=== PATIENT | male | born 1945 | race Caucasian/White ===

== ENCOUNTER 2023-03-10 13:17 | Emergency (ER) | payer MEDICARE ==
[~2023-03-10] VITALS: Ht 172.7 cm; Wt 147.4 kg
[2023-03-10 13:20] VITALS: BP_SYST 170; PULSE 102; RESP 22; TEMP 97.9; O2SAT 88
[2023-03-10 14:10] LABS: BASOPHILS # (AUTO) 0.1 K/uL (0.0-0.2); EOSINOPHILS # (AUTO) 0.3 K/uL (0.0-0.4); EOSINOPHILS % (AUTO) 2.7 % (0.0-4.0); HEMATOCRIT 46.6 % (36-54); HEMOGLOBIN 15.1 g/dL (14.0-18.0); LYMPHOCYTES # (AUTO) 2.3 K/uL (1.0-5.5); LYMPHOCYTES % (AUTO) 22.6 % (20.5-51.5); MEAN CORPUSCULAR HEMOGLOBIN 29 pg (27-31); MEAN CORPUSCULAR HGB CONC 32 % (32-36); MEAN CORPUSCULAR VOLUME 88 fL (79.0-98.0); MONOCYTES # (AUTO) 0.4 K/uL (0.0-1.0); MONOCYTES % (AUTO) 4.3 % (1.7-9.3); NEUTROPHILS % (AUTO) 69.4 % (40.0-70.0); PLATELET COUNT (AUTO) 265 K/uL (130-430); RED BLOOD CELL COUNT(AUTO) 5.27 MIL/uL (4.2-6.2); RED CELL DISTRIBUTION WIDTH 15.7 % (9.0-15.0); WHITE BLOOD COUNT (AUTO) 10.1 K/uL (4.8-10.8)
[2023-03-10 14:34] LABS: ALANINE AMINOTRANSFERASE 31 U/L (12-78); ALBUMIN 3.3 g/dL (3.4-4.8); ANION GAP 10 (5-15); ASPARTATE AMINOTRANSFERASE 24 U/L (10-37); CALCIUM 9.3 mg/dL (8.4-11.0); CARBON DIOXIDE 28 mmol/L (23-29); CHLORIDE 95 mmol/L (98-107); CREATININE 1.33 mg/dL (0.55-1.30); PHOSPHORUS 3.9 mg/dL (2.7-4.5); POTASSIUM 4.3 mmol/L (3.5-5.1); SODIUM SERUM 133 mmol/L (136-145); THYROID STIMULATING HORMONE 7.14 uIu/mL (0.34-4.82); TOTAL BILIRUBIN 0.5 mg/dL (0.0-1.0); TOTAL PROTEIN, SERUM 7.1 g/dL (6.4-8.3); UREA NITROGEN, BLOOD 14 mg/dL (8-21)
[2023-03-10 14:39] LABS: GLUCOSE 567 mg/dL (74-106)
[2023-03-10] MEDS ORDERED: VANCOMYCIN HCL 1,000 MG in NS 250 ML IV ONE (15:15)
[2023-03-10] MEDS ORDERED: INSULIN REGULAR, HUMAN 10 UNITS/0.1 ML, 3 ML VIAL IVP ONE (15:15)
[2023-03-10] MEDS ORDERED: VANCOMYCIN HCL 1000 MG/VIAL IV ONE (15:30)
[2023-03-10 17:42] LABS: BILIRUBIN,URINE NEGATIVE (NEGATIVE); BLOOD, URINE TRACE (NEGATIVE); CLARITY/URINE CLEAR (CLEAR); COLOR,URINE YELLOW (YELLOW); GLUCOSE,URINE 3+ (NEGATIVE); KETONES,URINE NEGATIVE (NEGATIVE); LEUKOCYTE ESTERASE ,URINE NEGATIVE (NEGATIVE); NITRITE, URINE NEGATIVE (NEGATIVE); PROTEIN URINE 1+ (NEGATIVE)
[2023-03-10 17:43] LABS: UROBILINOGEN,URINE 0.2 (0.2-1.0)
[2023-03-10 17:44] LABS: BACTERIA,URINE FEW /HPF (None Seen); RBC,URINE 0-3 /HPF (0-3); WBC,URINE 0-3 /HPF (0-3); YEAST,URINE Few /HPF (None Seen)
[2023-03-10 17:45] LABS: MUCUS,URINE None Seen /LPF (None Seen)
[2023-03-10] MEDS ORDERED: cefTRIAXone 1 GM IVPB PREMIX 50 ML IV ONE (18:30)
[2023-03-10 20:20] VITALS: BP_SYST 144; PULSE 92; RESP 26; TEMP 98.6; O2SAT 97
== END 2023-03-10 20:20 | disposition short-term general hospital (02) ==
LOC: SED 13:17
DX: L03.116 Cellulitis of left lower limb (principal); D32.0 Benign neoplasm of cerebral meninges; A41.9 Sepsis, unspecified organism; I11.0 Hypertensive heart disease with heart failure; I50.9 Heart failure, unspecified; E11.65 Type 2 diabetes mellitus with hyperglycemia; R73.9 Hyperglycemia, unspecified; Z79.899 Other long term (current) drug therapy; Z20.822 Contact with and (suspected) exposure to COVID-19
CPT/HCPCS: 99291; 70450; 96365; 96367; 96375; 87426; 80053; 81000; 82962; 83880; 84100; 84443; 85025; 87040; 84484; 36415; 93005; 71045; 72170; 73564; 72125; 76376; 83605; J0696; J1815; J3370; J7030

== ENCOUNTER 2023-08-06 10:27 | Emergency (ER) | payer MEDICARE ==
[~2023-08-06] VITALS: Ht 172.7 cm; Wt 147.4 kg
[2023-08-06 10:56] VITALS: BP_SYST 142; PULSE 80; RESP 18; TEMP 97.8; O2SAT 93
[2023-08-06] MEDS ORDERED: NS 1000 ML IV.SOLN IV ONE (12:00)
[2023-08-06 12:27] LABS: BASOPHILS # (AUTO) 0.1 K/uL (0.0-0.2); BASOPHILS % (AUTO) 0.8 % (0.0-2.0); EOSINOPHILS # (AUTO) 0.2 K/uL (0.0-0.4); EOSINOPHILS % (AUTO) 2.4 % (0.0-4.0); HEMATOCRIT 44.9 % (36-54); HEMOGLOBIN 14.8 g/dL (14.0-18.0); MEAN CORPUSCULAR HEMOGLOBIN 30 pg (27-31); MEAN CORPUSCULAR HGB CONC 33 % (32-36); MEAN CORPUSCULAR VOLUME 90 fL (79.0-98.0); MONOCYTES # (AUTO) 0.5 K/uL (0.0-1.0); MONOCYTES % (AUTO) 5.1 % (1.7-9.3); NEUTROPHILS # (AUTO) 6.6 K/uL (1.8-7.7); NEUTROPHILS % (AUTO) 70.7 % (40.0-70.0); PLATELET COUNT (AUTO) 261 K/uL (130-430); WHITE BLOOD COUNT (AUTO) 9.3 K/uL (4.8-10.8)
[2023-08-06 12:40] LABS: PROTHROMBIN TIME 10.1 SECS (9.5-12.5)
[2023-08-06 12:50] LABS: ALANINE AMINOTRANSFERASE 26 U/L (12-78); ANION GAP 9 (5-15); ASPARTATE AMINOTRANSFERASE 20 U/L (10-37); BILIRUBIN,DIRECT 0.2 mg/dL (0.0-0.3); CALCIUM 9.4 mg/dL (8.4-11.0); CARBON DIOXIDE 31 mmol/L (23-29); CHLORIDE 94 mmol/L (98-107); CREATININE 1.46 mg/dL (0.55-1.30); POTASSIUM 5.4 mmol/L (3.5-5.1); SODIUM SERUM 134 mmol/L (136-145); TOTAL BILIRUBIN 0.6 mg/dL (0.0-1.0); TOTAL PROTEIN, SERUM 7.1 g/dL (6.4-8.3); UREA NITROGEN, BLOOD 15 mg/dL (8-21)
[2023-08-06 12:51] LABS: GLUCOSE 694 mg/dL (74-106)
[2023-08-06] MEDS ORDERED: PIPERACILLIN/TAZO 4.5 GM in NS 100 ML IV ONE (13:45)
[2023-08-06] MEDS ORDERED: PIPERACILLIN/TAZOBACTAM 4.5 GM/VIAL (ZOSYN) IV ONE (13:57)
[2023-08-06] MEDS ORDERED: INSULIN REGULAR, HUMAN 10 UNITS/0.1 ML, 3 ML VIAL IVP ONE (15:15)
[2023-08-06] MEDS ORDERED: NACL 0.9% 1,000 ML IV ONE (15:15)
[2023-08-06] MEDS ORDERED: VANCOMYCIN HCL 1,750 MG in NS 500 ML IV ONE (17:00)
[2023-08-06 17:14] VITALS: BP_SYST 146; PULSE 83; RESP 18; TEMP 97.9; O2SAT 96
== END 2023-08-06 17:14 | disposition short-term general hospital (02) ==
LOC: SED 10:27
DX: B35.6 Tinea cruris (principal); E11.65 Type 2 diabetes mellitus with hyperglycemia; R73.9 Hyperglycemia, unspecified; A41.9 Sepsis, unspecified organism; I11.0 Hypertensive heart disease with heart failure; I50.9 Heart failure, unspecified; Z79.899 Other long term (current) drug therapy
CPT/HCPCS: 99285; 74177; 96365; 71045; 96361; 96375; 80076; 80048; 85025; 85610; 85730; 87040; 84484; 36415; 93005; 76376; 82948; 83605; J1815; J2543; J3370; Q9967; J7040; J7030